=== PATIENT | male | born 1960 | race Caucasian/White ===

== ENCOUNTER 2020-11-01 16:23 | Emergency (ER) | payer MEDICAID ==
[~2020-11-01] VITALS: Ht 172.7 cm; Wt 77.1 kg
--- NOTE | 2020-11-01 16:41 | NUR ---
DR Peña at the bedside for MSE.
[2020-11-01] MEDS ORDERED: OXYC-133 PO (16:50)
[2020-11-01 16:59] VITALS: BP 151/66
--- NOTE | 2020-11-01 17:00 | NUR ---
Patient discharged to home in stable condition. Written and verbal after care instructions given. Patient verbalizes understanding of instructions. Stressed follow up or return to ER for worsening s/s.
== END 2020-11-01 17:00 | disposition home or self-care (01) ==
LOC: ER 16:23
DX: K40.90 Unilateral inguinal hernia, without obstruction or gangrene, not specified as recurrent (principal)
CPT/HCPCS: A4663